=== PATIENT | female | born 1995 | race Two or more races ===

== ENCOUNTER 2019-11-06 22:43 | Emergency (ER) | payer MEDICAID ==
[~2019-11-06] VITALS: Ht 162.6 cm; Wt 61.0 kg
[2019-11-06] MEDS ORDERED: HYDROCODONE/ACETAMINOPHEN 5/325MG TABLET PO ONE (23:30)
[2019-11-06] MEDS ORDERED: IBUPROFEN 600MG TABLET PO ONE (23:30)
[2019-11-06] MEDS ORDERED: AMOXICILLIN/POTASSIUM CLAVULANATE 875/125MG TAB PO ONE (23:30)
[2019-11-06 23:45] VITALS: BP 114/73
== END 2019-11-06 23:56 | disposition home or self-care (01) ==
LOC: ER 22:43
DX: K04.7 Periapical abscess without sinus (principal); Z88.8 Allergy status to other drugs, medicaments and biological substances; Z88.6 Allergy status to analgesic agent
CPT/HCPCS: 99284

== ENCOUNTER 2020-01-23 04:08 | Emergency (ER) | payer MEDICAID ==
[~2020-01-23] VITALS: Ht 154.9 cm; Wt 66.0 kg
[2020-01-23 06:04] LABS: CLARITY URINE TURBID (CLEAR); COLOR URINE DARK YELLOW (YELLOW); KETONES URINE 1+ (NEGATIVE); LEUKOCYTE ESTERASE URINE 3+ (NEGATIVE); NITRITE URINE POSITIVE (NEGATIVE); OCCULT BLOOD URINE 3+ (NEGATIVE); PH URINE 5.5 (4.5-8.0); PROTEIN URINE 3+ (NEGATIVE); SPECIFIC GRAVITY URINE 1.033 (1.005-1.030)
[2020-01-23] MEDS ORDERED: MORPHINE SULFATE 4 MG/ML CPJ (NOT FOR IM USE) IV STA (06:20)
[2020-01-23] MEDS ORDERED: ONDANSETRON HCL 4MG/2ML INJ IV STA (06:20)
[2020-01-23] MEDS ORDERED: SODIUM CHLORIDE 0.9% 1,000 ML IV ONE (06:20)
[2020-01-23] MEDS ORDERED: CEFTRIAXONE 1 G PREMIX 50 ML IV ONE (06:30)
[2020-01-23 06:51] LABS: BASOPHILS % 0.4 % (0.0-2.0); EOSINOPHILS % 1.5 % (0.0-5.0); HEMATOCRIT. 38.4 % (36.0-48.0); HEMOGLOBIN. 13.1 g/dL (12.0-16.0); MEAN CORPUSCULAR HEMOGLOBIN 29.2 pg (28.0-32.0); MEAN PLATELET VOLUME 7.8 fl (7.4-10.4); MONOCYTES % 5.9 % (2.0-8.0); NEUTROPHILS % 68.2 % (40.0-76.0); PLATELET 320 x1000/uL (130-400); RED BLOOD CELL COUNT 4.47 mill/uL (4.2-5.4); RED CELL DISTRIBUTION WIDTH 13.8 % (11.6-14.6)
[2020-01-23 07:02] LABS: CHLORIDE 106 mEq/L (98-107)
[2020-01-23 07:14] LABS: HCG SCREEN NEGATIVE
[2020-01-23 08:24] VITALS: BP 99/56
== END 2020-01-23 08:25 | disposition home or self-care (01) ==
LOC: ER 04:08
DX: N12 Tubulo-interstitial nephritis, not specified as acute or chronic (principal)
CPT/HCPCS: 36415; 80053; 81003; 81025; 84703; 85025; 87077; 87086; 87186; 96365; 96375; 99284; J0696; J2270; J2405; J7030

== ENCOUNTER 2020-01-28 22:25 | Emergency (ER) | payer MEDICAID ==
[~2020-01-28] VITALS: Ht 154.9 cm; Wt 65.0 kg
[2020-01-28 22:27] VITALS: BP 119/69
[2020-01-28] MEDS ORDERED: CEFTRIAXONE 1 G PREMIX 50 ML IV ONE (23:15)
[2020-01-29 00:16] LABS: CLARITY URINE CLOUDY (CLEAR); COLOR URINE YELLOW (YELLOW); KETONES URINE NEGATIVE (NEGATIVE); LEUKOCYTE ESTERASE URINE 3+ (NEGATIVE); NITRITE URINE POSITIVE (NEGATIVE); OCCULT BLOOD URINE 2+ (NEGATIVE); PROTEIN URINE 1+ (NEGATIVE); SPECIFIC GRAVITY URINE 1.012 (1.005-1.030); UROBILINOGEN URINE 0.2 E.U./dL (0.2-1.0)
[2020-01-29] MEDS ORDERED: IBUPROFEN 600MG TABLET PO ONE (00:30)
== END 2020-01-29 01:30 | disposition home or self-care (01) ==
LOC: ER 22:36
DX: N39.0 Urinary tract infection, site not specified (principal); Z88.8 Allergy status to other drugs, medicaments and biological substances; Z88.6 Allergy status to analgesic agent
CPT/HCPCS: 81003; 81025; 87077; 87086; 87186; 96365; 99284; J0696

== ENCOUNTER 2020-02-10 02:48 | Emergency (ER) | payer MEDICAID ==
[~2020-02-10] VITALS: Ht 154.9 cm; Wt 65.0 kg
[2020-02-10] MEDS ORDERED: HYDROCODONE/ACETAMINOPHEN 5/325MG TABLET PO STA (03:43)
[2020-02-10 04:18] LABS: CLARITY URINE CLOUDY (CLEAR); COLOR URINE YELLOW (YELLOW); KETONES URINE NEGATIVE (NEGATIVE); LEUKOCYTE ESTERASE URINE 3+ (NEGATIVE); NITRITE URINE POSITIVE (NEGATIVE); OCCULT BLOOD URINE 2+ (NEGATIVE); PROTEIN URINE 2+ (NEGATIVE); SPECIFIC GRAVITY URINE 1.015 (1.005-1.030); UROBILINOGEN URINE 0.2 E.U./dL (0.2-1.0)
[2020-02-10 04:43] VITALS: BP 114/51
== END 2020-02-10 05:36 | disposition home or self-care (01) ==
LOC: ER 02:51
DX: N39.0 Urinary tract infection, site not specified (principal); R91.8 Other nonspecific abnormal finding of lung field; M79.7 Fibromyalgia; Z90.49 Acquired absence of other specified parts of digestive tract; Z88.8 Allergy status to other drugs, medicaments and biological substances
CPT/HCPCS: 74176; 81003; 81025; 87077; 87186; 99284

== ENCOUNTER 2020-03-03 04:26 | Emergency (ER) | payer MEDICAID ==
[~2020-03-03] VITALS: Ht 154.9 cm; Wt 65.0 kg
[2020-03-03] MEDS ORDERED: ACETAMINOPHEN WITH CODEINE 300/30MG TABLET PO STA (06:37)
[2020-03-03] MEDS ORDERED: NITROFURANTOIN 100MG M/M CAPSULE PO ONE (06:45)
[2020-03-03] MEDS ORDERED: KETOROLAC 60MG/2ML VIAL IM ONE (08:15)
[2020-03-03 08:41] VITALS: BP 110/49
[2020-03-03 08:44] LABS: BASOPHILS % 0.5 % (0.0-2.0); EOSINOPHILS % 1.1 % (0.0-5.0); HEMATOCRIT. 39.3 % (36.0-48.0); HEMOGLOBIN. 13.3 g/dL (12.0-16.0); LYMPHOCYTES % 33.2 % (20.0-50.0); MEAN CORPUSCULAR HEMOGLOBIN 29.8 pg (28.0-32.0); MEAN CORPUSCULAR VOLUME 88.1 fL (81.0-99.0); MEAN PLATELET VOLUME 8.3 fl (7.4-10.4); NEUTROPHILS % 60.2 % (40.0-76.0); PLATELET 284 x1000/uL (130-400); RED BLOOD CELL COUNT 4.46 mill/uL (4.2-5.4); RED CELL DISTRIBUTION WIDTH 14.4 % (11.6-14.6)
[2020-03-03] MEDS ORDERED: HYDROCODONE/ACETAMINOPHEN 5/325MG TABLET PO ONE (08:45)
[2020-03-03 08:48] LABS: CHLORIDE 109 mEq/L (98-107)
== END 2020-03-03 10:25 | disposition home or self-care (01) ==
LOC: ER 04:26
DX: N12 Tubulo-interstitial nephritis, not specified as acute or chronic (principal); M79.7 Fibromyalgia; Z87.19 Personal history of other diseases of the digestive system; Z91.040 Latex allergy status; Z90.49 Acquired absence of other specified parts of digestive tract; Z88.6 Allergy status to analgesic agent
CPT/HCPCS: 36415; 76770; 80053; 85025; 99284

== ENCOUNTER 2020-03-11 01:41 | Emergency (ER) | payer MEDICAID ==
[~2020-03-11] VITALS: Ht 154.9 cm; Wt 64.0 kg
[2020-03-11 01:48] VITALS: BP 108/70
[2020-03-11 03:15] LABS: BASOPHILS % 0.4 % (0.0-2.0); EOSINOPHILS % 1.1 % (0.0-5.0); HEMATOCRIT. 35.5 % (36.0-48.0); LYMPHOCYTES % 24.4 % (20.0-50.0); MEAN CORPUSCULAR HEMOGLOBIN 29.9 pg (28.0-32.0); MEAN CORPUSCULAR VOLUME 88.3 fL (81.0-99.0); MEAN PLATELET VOLUME 8.1 fl (7.4-10.4); MONOCYTES % 6.7 % (2.0-8.0); NEUTROPHILS % 67.4 % (40.0-76.0); PLATELET 227 x1000/uL (130-400); RED BLOOD CELL COUNT 4.02 mill/uL (4.2-5.4); RED CELL DISTRIBUTION WIDTH 14.4 % (11.6-14.6)
[2020-03-11 03:21] LABS: CHLORIDE 107 mEq/L (98-107)
[2020-03-11 05:45] LABS: CLARITY URINE CLOUDY (CLEAR); COLOR URINE YELLOW (YELLOW); KETONES URINE NEGATIVE (NEGATIVE); LEUKOCYTE ESTERASE URINE 3+ (NEGATIVE); NITRITE URINE POSITIVE (NEGATIVE); OCCULT BLOOD URINE 1+ (NEGATIVE); PH URINE 6.5 (4.5-8.0); PROTEIN URINE 2+ (NEGATIVE); SPECIFIC GRAVITY URINE 1.014 (1.005-1.030); UROBILINOGEN URINE 0.2 E.U./dL (0.2-1.0)
== END 2020-03-11 05:45 | disposition home or self-care (01) ==
LOC: ER 01:41
DX: N30.90 Cystitis, unspecified without hematuria (principal); Z88.3 Allergy status to other anti-infective agents; Z88.6 Allergy status to analgesic agent; Z91.040 Latex allergy status; Z90.49 Acquired absence of other specified parts of digestive tract
CPT/HCPCS: 36415; 76770; 80053; 81003; 81025; 85025; 87077; 87186; 93005; 99285

== ENCOUNTER 2020-04-14 06:23 | Emergency (ER) | payer MEDICAID ==
[~2020-04-14] VITALS: Ht 154.9 cm; Wt 65.0 kg
[2020-04-14] MEDS ORDERED: ACETAMINOPHEN 325MG TABLET PO STA (07:00)
[2020-04-14 07:17] LABS: CLARITY URINE TURBID (CLEAR); COLOR URINE YELLOW (YELLOW); KETONES URINE NEGATIVE (NEGATIVE); LEUKOCYTE ESTERASE URINE 3+ (NEGATIVE); NITRITE URINE NEGATIVE (NEGATIVE); OCCULT BLOOD URINE 1+ (NEGATIVE); PROTEIN URINE 2+ (NEGATIVE); SPECIFIC GRAVITY URINE 1.025 (1.005-1.030); UROBILINOGEN URINE 0.2 E.U./dL (0.2-1.0)
[2020-04-14 07:26] LABS: BASOPHILS % 0.5 % (0.0-2.0); EOSINOPHILS % 1.6 % (0.0-5.0); HEMATOCRIT. 32.5 % (36.0-48.0); HEMOGLOBIN. 11.2 g/dL (12.0-16.0); LYMPHOCYTES % 32.5 % (20.0-50.0); MEAN CORPUSCULAR VOLUME 89.9 fL (81.0-99.0); MEAN PLATELET VOLUME 7.8 fl (7.4-10.4); MONOCYTES % 5.1 % (2.0-8.0); NEUTROPHILS % 60.3 % (40.0-76.0); PLATELET 227 x1000/uL (130-400); RED BLOOD CELL COUNT 3.61 mill/uL (4.2-5.4); RED CELL DISTRIBUTION WIDTH 14.5 % (11.6-14.6)
[2020-04-14 07:32] LABS: CHLORIDE 112 mEq/L (98-107)
[2020-04-14 07:35] LABS: PROTHROMBIN TIME 10.6 sec (9.6-11.0)
[2020-04-14 07:57] LABS: B-HCG QUANTITATIVE 72737 mIU/mL (<3)
[2020-04-14] MEDS ORDERED: CEFTRIAXONE 1 G PREMIX 50 ML IV ONE (09:15)
[2020-04-14] MEDS ORDERED: MORPHINE SULFATE 4 MG/ML CPJ (NOT FOR IM USE) IV ONE (10:30)
[2020-04-14 10:40] VITALS: BP 107/64
== END 2020-04-14 11:05 | disposition short-term general hospital (02) ==
LOC: ER 06:23
DX: O23.01 Infections of kidney in pregnancy, first trimester (principal); B96.20 Unspecified Escherichia coli [E. coli] as the cause of diseases classified elsewhere; Z3A.01 Less than 8 weeks gestation of pregnancy
CPT/HCPCS: 36415; 76801; 80053; 81003; 81025; 83690; 84702; 85025; 85610; 87077; 87086; 87186; 96365; 96375; 99284; J0696; J2270

== ENCOUNTER 2020-05-10 14:11 | Emergency (ER) | payer MEDICAID ==
[~2020-05-10] VITALS: Ht 154.9 cm; Wt 64.0 kg
[2020-05-10 14:36] VITALS: BP 124/86
== END 2020-05-10 15:37 | disposition home or self-care (01) ==
LOC: ER 14:11
DX: N12 Tubulo-interstitial nephritis, not specified as acute or chronic (principal); Z91.040 Latex allergy status; Z88.6 Allergy status to analgesic agent; Z88.3 Allergy status to other anti-infective agents; Z90.49 Acquired absence of other specified parts of digestive tract; Z98.890 Other specified postprocedural states
CPT/HCPCS: 99281

== ENCOUNTER 2020-05-18 23:42 | Emergency (ER) | payer MEDICAID ==
[~2020-05-18] VITALS: Ht 154.9 cm; Wt 64.0 kg
[2020-05-19 01:26] VITALS: BP 93/54
[2020-05-19 02:29] LABS: CLARITY URINE CLOUDY (CLEAR); COLOR URINE YELLOW (YELLOW); KETONES URINE NEGATIVE (NEGATIVE); LEUKOCYTE ESTERASE URINE 3+ (NEGATIVE); NITRITE URINE POSITIVE (NEGATIVE); OCCULT BLOOD URINE NEGATIVE (NEGATIVE); PROTEIN URINE TRACE (NEGATIVE); UROBILINOGEN URINE 0.2 E.U./dL (0.2-1.0)
[2020-05-19] MEDS ORDERED: ONDANSETRON HCL 4MG/2ML INJ IM STA (02:42)
[2020-05-19] MEDS ORDERED: ACETAMINOPHEN 325MG TABLET PO STA (02:42)
[2020-05-19] MEDS ORDERED: CEFTRIAXONE SODIUM 1 G/VIAL IM ONE (02:45)
[2020-05-19] MEDS ORDERED: LIDOCAINE HCL 1% 20ML VIAL (Pyxis) INJ INFIL ONE (02:45)
== END 2020-05-19 03:28 | disposition home or self-care (01) ==
LOC: ER 05-19
DX: O23.41 Unspecified infection of urinary tract in pregnancy, first trimester (principal); Z3A.12 12 weeks gestation of pregnancy
CPT/HCPCS: 81003; 81025; 87077; 87086; 87186; 96372; 99284; J0696; J2405; J3490

== ENCOUNTER 2020-09-12 16:44 | Inpatient (IN) | payer MEDICAID ==
[~2020-09-12] VITALS: Ht 154.9 cm; Wt 74.8 kg
[2020-09-12] MEDS ORDERED: SODIUM CHLORIDE 0.9% 1,000 ML IV ONE ×3 (17:15→17:45)
[2020-09-12] MEDS ORDERED: ACETAMINOPHEN 325MG TABLET PO STA (17:26)
[2020-09-12] MEDS ORDERED: CEFTRIAXONE 1 G PREMIX 50 ML IV ONE (17:30)
[2020-09-12 18:06] LABS: HEMOGLOBIN. 8.8 g/dL (12.0-16.0); MEAN CORPUSCULAR VOLUME 85.3 fL (81.0-99.0); MEAN PLATELET VOLUME 8.4 fl (7.4-10.4); PLATELET 153 x1000/uL (130-400); RED BLOOD CELL COUNT 2.93 mill/uL (4.2-5.4); RED CELL DISTRIBUTION WIDTH 12.7 % (11.6-14.6)
[2020-09-12 18:12] LABS: CHLORIDE 106 mEq/L (98-107)
[2020-09-12 18:21] LABS: INR 1.1; PARTIAL THROMBOPLASTIN TIME 32.8 sec (23.4-31.0); PROTHROMBIN TIME 11.7 sec (9.6-11.0)
[2020-09-12] MEDS ORDERED: POTASSIUM CHLORIDE 20MEQ TABLET SR PO ONE ×2 (18:30→20:30)
[2020-09-12 18:39] LABS: B-HCG QUANTITATIVE 6811 mIU/mL (<3)
[2020-09-12 18:41] LABS: PLATELET ESTIMATE NORMAL
[2020-09-12 19:22] LABS: CLARITY URINE TURBID (CLEAR); COLOR URINE YELLOW (YELLOW); KETONES URINE 3+ (NEGATIVE); LEUKOCYTE ESTERASE URINE 3+ (NEGATIVE); NITRITE URINE NEGATIVE (NEGATIVE); OCCULT BLOOD URINE 2+ (NEGATIVE); PH URINE 5.5 (4.5-8.0); PROTEIN URINE 2+ (NEGATIVE); SPECIFIC GRAVITY URINE 1.015 (1.005-1.030)
[2020-09-12] MEDS ORDERED: DIPHENHYDRAMINE 50MG/ML VIAL IV PRN (19:30)
[2020-09-12 22:10] VITALS: BP 114/60
[2020-09-12] MEDS: SODIUM CHLORIDE 0.9% 1,000 ML IV SCH (23:23)
[2020-09-12] MEDS: ACETAMINOPHEN 325MG TABLET PO PRN (23:42)
[2020-09-13] VITALS: BP 109/56
[2020-09-13 02:00] VITALS: BP 109/49
[2020-09-13] MEDS ORDERED: GENTAMICIN 120MG PREMIX 100 ML IV NR (02:00)
[2020-09-13 03:17] LABS: *BARBITURATES SCREEN URINE NEGATIVE (NEGATIVE); *BENZODIAZEPINES SCREEN URINE NEGATIVE (NEGATIVE); *COCAINE SCREEN URINE NEGATIVE (NEGATIVE); METHADONE URINE SCREEN NEGATIVE (NEGATIVE); OPIATES URINE SCREEN NEGATIVE (NEGATIVE)
[2020-09-13 03:18] LABS: *AMPHETAMINES SCREEN URINE NEGATIVE (NEGATIVE); CANNABINOID URINE SCREEN NEGATIVE (NEGATIVE); PHENCYCLIDINE URINE SCREEN NEGATIVE (NEGATIVE)
[2020-09-13] MEDS: MEROPENEM 500 MG in SODIUM CHLORIDE 0.9% 50 ML IV SCH ×2 (03:31→20:48)
[2020-09-13 04:00] VITALS: BP 95/53
[2020-09-13] MEDS ORDERED: ACETAMINOPHEN WITH CODEINE 300/30MG TABLET PO NR (04:30)
[2020-09-13] MEDS ORDERED: SODIUM CHLORIDE 0.9% 500 ML IV NR (04:30)
[2020-09-13 05:56] LABS: CHLORIDE 109 mEq/L (98-107)
[2020-09-13 06:03] LABS: LDL CHOLESTEROL 65 mg/dL (5-100)
[2020-09-13 06:05] LABS: HDL CHOLESTEROL 50 mg/dL (40-59)
[2020-09-13 06:17] LABS: BASOPHILS % 0.1 % (0.0-2.0); HEMATOCRIT. 25.6 % (36.0-48.0); HEMOGLOBIN. 8.5 g/dL (12.0-16.0); LYMPHOCYTES % 7.5 % (20.0-50.0); MEAN CORPUSCULAR HEMOGLOBIN 28.9 pg (28.0-32.0); MEAN CORPUSCULAR VOLUME 86.8 fL (81.0-99.0); MEAN PLATELET VOLUME 8.5 fl (7.4-10.4); MONOCYTES % 8.1 % (2.0-8.0); NEUTROPHILS % 84.3 % (40.0-76.0); PLATELET 159 x1000/uL (130-400); RED BLOOD CELL COUNT 2.95 mill/uL (4.2-5.4); RED CELL DISTRIBUTION WIDTH 12.8 % (11.6-14.6)
[2020-09-13] MEDS: FERROUS SULFATE 300MG/5ML UDC PO SCH ×2 (07:20→21:38)
[2020-09-13 08:00] VITALS: BP_SYST 91
[2020-09-13 08:05] LABS: HEPATITIS B SURFACE ANTIGEN NEGATIVE
[2020-09-13] MEDS: ACETAMINOPHEN 325MG TABLET PO PRN ×2 (08:38→20:36)
[2020-09-13] MEDS ORDERED: POTASSIUM CHLORIDE 20MEQ/PACKET PO NR (08:45)
[2020-09-13] MEDS: ACETAMINOPHEN WITH CODEINE 300/30MG TABLET PO PRN (08:55)
[2020-09-13] MEDS ORDERED: PRENATAL VIT/FE FUMARATE/FA TABLET PO SCH (09:00)
[2020-09-13 09:45] VITALS: BP 92/62
[2020-09-13 10:00] VITALS: BP 83/44
[2020-09-13] MEDS ORDERED: ONDANSETRON HCL 4MG/2ML INJ IV PRN (10:45)
[2020-09-13] MEDS: CALCIUM CARBONATE 500MG TABLET CHEW PO SCH ×2 (11:23→19:41)
[2020-09-13] MEDS: PRENATAL VIT/FE FUMARATE/FA TABLET PO SCH (11:23)
[2020-09-13] MEDS ORDERED: LACTATED RINGERS 1,000 ML IV SCH (15:15)
[2020-09-13] MEDS ORDERED: BUTORPHANOL TARTRATE 2 MG/ML VIAL IV PRN (16:15)
[2020-09-13] MEDS ORDERED: CEFTRIAXONE 1,000 MG in DEXTROSE 5% WATER 50 ML IV SCH (18:00)
[2020-09-13] MEDS: SODIUM CHLORIDE 0.9% 1,000 ML IV SCH (18:34)
[2020-09-13] MEDS: DEXT 5%/0.9% NACL KCL 20MEQ/L 1,000 ML IV SCH (21:39)
[2020-09-14] MEDS ORDERED: BUTORPHANOL TARTRATE 2 MG/ML VIAL IV PRN (00:15)
[2020-09-14 01:17] LABS: BASOPHILS % 0.1 % (0.0-2.0); HEMATOCRIT. 26.8 % (36.0-48.0); HEMOGLOBIN. 8.9 g/dL (12.0-16.0); LYMPHOCYTES % 9.2 % (20.0-50.0); MEAN CORPUSCULAR HEMOGLOBIN 28.8 pg (28.0-32.0); MEAN CORPUSCULAR VOLUME 86.3 fL (81.0-99.0); MEAN PLATELET VOLUME 7.8 fl (7.4-10.4); MONOCYTES % 5.7 % (2.0-8.0); PLATELET 170 x1000/uL (130-400); RED BLOOD CELL COUNT 3.11 mill/uL (4.2-5.4); RED CELL DISTRIBUTION WIDTH 13.3 % (11.6-14.6)
[2020-09-14 01:21] LABS: CHLORIDE 114 mEq/L (98-107)
[2020-09-14] MEDS: MEROPENEM 500 MG in SODIUM CHLORIDE 0.9% 50 ML IV SCH ×3 (04:06→20:29)
[2020-09-14] MEDS: CALCIUM CARBONATE 500MG TABLET CHEW PO SCH ×4 (04:20→17:00)
[2020-09-14] MEDS: ACETAMINOPHEN WITH CODEINE 300/30MG TABLET PO PRN ×2 (04:23→08:52)
[2020-09-14] MEDS ORDERED: FUROSEMIDE 20MG/2ML VIAL IVP NR (06:00)
[2020-09-14] MEDS ORDERED: SODIUM CHLORIDE 0.9% 1,000 ML IV PRN (06:00)
[2020-09-14 07:01] VITALS: BP 91/48
[2020-09-14 07:31] VITALS: BP 80/45
[2020-09-14 08:14] VITALS: BP 82/47
[2020-09-14 08:31] VITALS: BP 83/50
[2020-09-14] MEDS: PRENATAL VIT/FE FUMARATE/FA TABLET PO SCH (08:52)
[2020-09-14] MEDS: FERROUS SULFATE 325MG TABLET PO SCH ×3 (08:54→17:00)
[2020-09-14] MEDS: DEXT 5%/0.9% NACL KCL 20MEQ/L 1,000 ML IV SCH (14:58)
[2020-09-14 15:25] LABS: HEMATOCRIT. 36.6 % (36.0-48.0); HEMOGLOBIN. 12.6 g/dL (12.0-16.0); MEAN CORPUSCULAR HEMOGLOBIN 29.6 pg (28.0-32.0); MEAN CORPUSCULAR VOLUME 86.1 fL (81.0-99.0); MEAN PLATELET VOLUME 7.7 fl (7.4-10.4); PLATELET 203 x1000/uL (130-400); RED BLOOD CELL COUNT 4.25 mill/uL (4.2-5.4)
[2020-09-14 16:12] LABS: PLATELET ESTIMATE NORMAL
[2020-09-14] MEDS: ACETAMINOPHEN 325MG TABLET PO PRN ×2 (17:33→20:25)
[2020-09-15] MEDS: DEXT 5%/0.9% NACL KCL 20MEQ/L 1,000 ML IV SCH ×2 (01:42→12:39)
[2020-09-15] MEDS: ACETAMINOPHEN 325MG TABLET PO PRN ×2 (04:10→19:44)
[2020-09-15] MEDS: MEROPENEM 500 MG in SODIUM CHLORIDE 0.9% 50 ML IV SCH ×3 (04:30→20:00)
[2020-09-15] MEDS: ACETAMINOPHEN WITH CODEINE 300/30MG TABLET PO PRN ×3 (06:18→23:21)
[2020-09-15] MEDS: CALCIUM CARBONATE 500MG TABLET CHEW PO SCH ×2 (06:20→10:43)
[2020-09-15 07:07] LABS: CHLORIDE 117 mEq/L (98-107)
[2020-09-15] MEDS: FERROUS SULFATE 325MG TABLET PO SCH (09:00)
[2020-09-15] MEDS: PRENATAL VIT/FE FUMARATE/FA TABLET PO SCH (09:26)
[2020-09-15 20:41] LABS: HEMATOCRIT. 32.7 % (36.0-48.0); MEAN CORPUSCULAR VOLUME 86.1 fL (81.0-99.0); MEAN PLATELET VOLUME 7.3 fl (7.4-10.4); PLATELET 240 x1000/uL (130-400); RED CELL DISTRIBUTION WIDTH 13.8 % (11.6-14.6)
[2020-09-15 20:58] LABS: CHLORIDE 115 mEq/L (98-107)
[2020-09-15 21:55] LABS: PLATELET ESTIMATE NORMAL
[2020-09-16] MEDS: DEXT 5%/0.9% NACL KCL 20MEQ/L 1,000 ML IV SCH ×2 (01:40→12:53)
[2020-09-16] MEDS: MEROPENEM 500 MG in SODIUM CHLORIDE 0.9% 50 ML IV SCH ×4 (04:00→21:24)
[2020-09-16] MEDS ORDERED: HYDROCODONE/ACETAMINOPHEN 10/325MG TABLET PO NR (06:15)
[2020-09-17] MEDS: DEXT 5%/0.9% NACL KCL 20MEQ/L 1,000 ML IV SCH ×3 (01:41→23:36)
[2020-09-17] MEDS ORDERED: TERBUTALINE SULFATE 1MG/ML VIAL SUBCUT PRN (02:30)
[2020-09-17] MEDS: CALCIUM CARBONATE 500MG TABLET CHEW PO SCH ×2 (03:06→08:14)
[2020-09-17] MEDS: ACETAMINOPHEN WITH CODEINE 300/30MG TABLET PO PRN ×2 (03:06→23:51)
[2020-09-17] MEDS: MEROPENEM 500 MG in SODIUM CHLORIDE 0.9% 50 ML IV SCH ×3 (06:25→22:06)
[2020-09-17] MEDS: PRENATAL VIT/FE FUMARATE/FA TABLET PO SCH (08:14)
[2020-09-17] MEDS ORDERED: SERT50TA PO (22:21)
[2020-09-17 23:51] VITALS: BP 102/64
[2020-09-18] MEDS: MEROPENEM 500 MG in SODIUM CHLORIDE 0.9% 50 ML IV SCH ×2 (06:31→15:54)
[2020-09-18 07:00] LABS: CHLORIDE 113 mEq/L (98-107)
[2020-09-18 07:02] LABS: HEMATOCRIT. 29.4 % (36.0-48.0); HEMOGLOBIN. 10.1 g/dL (12.0-16.0); MEAN CORPUSCULAR HEMOGLOBIN 29.1 pg (28.0-32.0); MEAN CORPUSCULAR VOLUME 84.4 fL (81.0-99.0); MEAN PLATELET VOLUME 6.9 fl (7.4-10.4); PLATELET 324 x1000/uL (130-400); RED BLOOD CELL COUNT 3.49 mill/uL (4.2-5.4); RED CELL DISTRIBUTION WIDTH 13.8 % (11.6-14.6)
[2020-09-18] MEDS: DEXT 5%/0.9% NACL KCL 20MEQ/L 1,000 ML IV SCH (10:24)
[2020-09-18] MEDS: PRENATAL VIT/FE FUMARATE/FA TABLET PO SCH (10:24)
[2020-09-18 18:15] LABS: PLATELET ESTIMATE NORMAL
[2020-09-19] MEDS: MEROPENEM 500 MG in SODIUM CHLORIDE 0.9% 50 ML IV SCH ×3 (00:02→22:04)
[2020-09-19] MEDS: ACETAMINOPHEN 325MG TABLET PO PRN (00:44)
[2020-09-19] MEDS: PRENATAL VIT/FE FUMARATE/FA TABLET PO SCH (09:18)
[2020-09-19] MEDS ORDERED: LIDOCAINE HCL 1% 20ML VIAL (Pyxis) INJ ONE (11:27)
[2020-09-19] MEDS ORDERED: FERR325T23 PO (22:10)
== END 2020-09-19 23:07 | disposition home health service (06) | DRG 566 ==
LOC: ER 16:54 → ENRESERV 21:09 → 3WST 22:43 → 8 EST LDRP 09-13 11:43
PROVIDERS: ADMIT Obstetrics & Gynecology; ATTEND Obstetrics & Gynecology
PROC: 30233N1 Transfusion of Nonautologous Red Blood Cells into Peripheral Vein, Percutaneous Approach (ICD-10-PCS; 2020-09-14)
PROC: 02HV33Z Insertion of Infusion Device into Superior Vena Cava, Percutaneous Approach (ICD-10-PCS; principal; 2020-09-19)
PROC: B518ZZA Fluoroscopy of Superior Vena Cava, Guidance (ICD-10-PCS; 2020-09-19)
PROC: B548ZZA Ultrasonography of Superior Vena Cava, Guidance (ICD-10-PCS; 2020-09-19)
DX: O98.813 Other maternal infectious and parasitic diseases complicating pregnancy, third trimester (principal); A41.51 Sepsis due to Escherichia coli [E. coli]; O45.93 Premature separation of placenta, unspecified, third trimester; N13.6 Pyonephrosis; O23.40 Unspecified infection of urinary tract in pregnancy, unspecified trimester; D64.9 Anemia, unspecified; E87.6 Hypokalemia; J45.909 Unspecified asthma, uncomplicated; O23.03 Infections of kidney in pregnancy, third trimester; O99.513 Diseases of the respiratory system complicating pregnancy, third trimester; Z16.24 Resistance to multiple antibiotics; O99.343 Other mental disorders complicating pregnancy, third trimester; F32.9 Major depressive disorder, single episode, unspecified; Z20.822 Contact with and (suspected) exposure to COVID-19; O99.333 Smoking (tobacco) complicating pregnancy, third trimester; F17.210 Nicotine dependence, cigarettes, uncomplicated; O99.013 Anemia complicating pregnancy, third trimester; O99.283 Endocrine, nutritional and metabolic diseases complicating pregnancy, third trimester; Z88.8 Allergy status to other drugs, medicaments and biological substances; Z91.040 Latex allergy status; Z79.899 Other long term (current) drug therapy; Z90.49 Acquired absence of other specified parts of digestive tract; Z87.440 Personal history of urinary (tract) infections; Z3A.30 30 weeks gestation of pregnancy
CPT/HCPCS: 36415; 36573; 71045; 76700; 76770; 76805; 76815; 80053; 80061; 80305; 81003; 82731; 83605; 83880; 84145; 84443; 84484; 84702; 85025; 86592; 86703; 86762; 86850; 86900; 86920; 87077; 87186; 87340; 87426; 93005; 99291; C1725; C1769; J0595; J0696; J1580; J1940; J2185; J3490; J7030; J7040; J7120; P9016; P9021

== ENCOUNTER 2020-10-05 17:18 | Emergency (ER) | payer MEDICAID ==
[~2020-10-05] VITALS: Ht 154.9 cm; Wt 70.0 kg
[~2020-10-05 17:18] MED LIST: FERR325T23 PO; SERT50TA PO
[2020-10-05 20:10] VITALS: BP 111/75
== END 2020-10-05 20:13 | disposition home or self-care (01) ==
LOC: ER 17:18
DX: O26.893 Other specified pregnancy related conditions, third trimester (principal); Z46.82 Encounter for fitting and adjustment of non-vascular catheter; Z90.49 Acquired absence of other specified parts of digestive tract; Z3A.33 33 weeks gestation of pregnancy; Z88.6 Allergy status to analgesic agent
CPT/HCPCS: 99281; Z7610